=== PATIENT | male | born 1990 | race Two or more races ===

== ENCOUNTER 2019-05-24 02:24 | Emergency (ER) | payer OTHER ==
[2019-05-24] MEDS ORDERED: Diphtheria,Pertussis(Acell),Tetanus Vaccine 0.5 ML Syringe IM ONE (02:52)
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
== END 2019-05-24 03:38 | disposition home or self-care (01) ==
LOC: JD.ED 02:24
DX: S01.01XA Laceration without foreign body of scalp, initial encounter (principal); Z23 Encounter for immunization; Z88.0 Allergy status to penicillin; W10.9XXA Fall (on) (from) unspecified stairs and steps, initial encounter
CPT/HCPCS: 12001; 90471; 90715; 99282; 99282-25